=== PATIENT | male | born 1990 | race African-American/Black ===

== ENCOUNTER 2019-12-14 21:09 | Emergency (ER) | payer BC ==
[~2019-12-14] VITALS: Ht 172.7 cm; Wt 70.3 kg
[~2019-12-14 21:09] MED LIST: IBUPROFEN 600600 M1 PO
[2019-12-14 21:12] VITALS: BP 123/71
[2019-12-14] MEDS ORDERED: NOHOMEMEDICATIONS (21:17)
[2019-12-14] MEDS ORDERED: NORCO 5-325 TA1 EAC1 PO (22:47)
== END 2019-12-14 23:34 | disposition home or self-care (01) ==
LOC: ER 21:09
DX: S52.502A Unspecified fracture of the lower end of left radius, initial encounter for closed fracture (principal); S52.612A Displaced fracture of left ulna styloid process, initial encounter for closed fracture; S50.312A Abrasion of left elbow, initial encounter; W01.0XXA Fall on same level from slipping, tripping and stumbling without subsequent striking against object, initial encounter; Y93.02 Activity, running; Y92.89 Other specified places as the place of occurrence of the external cause; Y99.8 Other external cause status

== ENCOUNTER → 2019-12-19 | Outpatient (CLI) | payer BC ==
[~2019-12-19] MED LIST changes: +NOHOMEMEDICATIONS; +NORCO 5-325 TA1 EAC1 PO
== END ==
LOC: LAB 08:00
PROVIDERS: ATTEND Anesthesiology
DX: Z01.818 Encounter for other preprocedural examination (principal); Z11.59 Encounter for screening for other viral diseases